=== PATIENT | female | born 1930 | race Caucasian/White ===

== ENCOUNTER → 2016-09-08 | Outpatient (REF) | payer MEDICARE, OTHER ==
[~2016-09-08] MED LIST: ACET65TA; ACET65TA PO; AMLO5TAB PO; AMLO5TAB2 PO; AVAP300T; AVAP75TA5 OR; CIPR500T19; CIPR500T4 PO; DIET; FLAG500T; HYDR25TA6; IBUP600T26 PO; LOPERAMIDE; LUNE2TAB; LUNE2TAB OR; MELOPOW; MOBIC; NORCOTAB PO; PERC5TAB8 PO; TOPR25TA; TOPR25TA OR; TOPR50TA PO; TRAM50TA2 OR; TRAM50TA2 PO; TYLE650T30 PO
[2016-09-08 11:55] LABS: ANION GAP 10 MEQ/L (8-16); BLOOD UREA NITROGEN 21 MG/DL (7-18); CARBON DIOXIDE LEVEL 24 MEQ/L (21-32); CHLORIDE LEVEL 109 MEQ/L (98-107); CREATININE FOR GFR 0.86 MG/DL (0.55-1.02); GLOMERULAR FILTRATION RATE > 60.0 (>32); GLUCOSE, FASTING 139 MG/DL (83-110); POTASSIUM SERUM 4.2 MEQ/L (3.5-5.1); SODIUM LEVEL 143 MEQ/L (136-145)
[2016-09-08 12:14] LABS: BASO % 0.3 % (0.0-1.0); EOS # 0.2 K/mm3 (0.0-0.50); EOS % 3.5 % (0.0-3.0); LYMPH # 1.5 K/mm3 (1.5-4.5); LYMPH % 21.9 % (24.0-44.0); MEAN CORPUSCULAR HEMOGLOBIN 27.9 pg (27.0-33.0); MEAN CORPUSCULAR HGB CONC 32.8 g/dl (32.0-36.5); MEAN CORPUSCULAR VOLUME 85.1 fl (80.0-96.0); MONO # 0.3 K/mm3 (0.0-0.8); MONO % 4.9 % (0.0-5.0); NEUTROPHILS # 4.5 K/mm3 (1.8-7.7); NEUTROPHILS % 67.8 % (36.0-66.0); RED CELL DISTRIBUTION WIDTH 13.3 % (11.5-14.5); WHITE BLOOD COUNT 6.6 K/mm3 (4.0-10.0)
== END ==
LOC: M LABDRAW1 10:57
PROVIDERS: ATTEND Internal Medicine
DX: I10 Essential (primary) hypertension (principal); N18.3 Chronic kidney disease, stage 3 (moderate); M15.9 Polyosteoarthritis, unspecified

== ENCOUNTER 2017-05-25 23:22 | Emergency (ER) | payer MEDICARE, OTHER ==
[~2017-05-25] VITALS: Ht 165.1 cm; Wt 89.5 kg
[~2017-05-25 23:22] MED LIST changes: +IBUP-1022 PO; -IBUP600T26 PO
--- NOTE | 2017-05-25 23:50 | REPUSA ---
CT of the head Clinical history: fall. Technique: Multiple axial CT images were obtained through the head without administration of contrast . Findings: The ventricles and sulci are symmetric bilaterally. There is no evidence of acute hemorrhag e or infarct. There is no midline shift, mass effect, or extra-axial fluid collection. The osseous st ructures are unremarkable. The visualized paranasal sinuses and mastoid air cells are clear. Impression: Negative study.
[2017-05-26] MEDS ORDERED: PERCOCET 5MG/325MG TAB PO ONE
--- NOTE | 2017-05-26 01:26 | REP ---
Clinical: Pain with recent trauma. Technique: Internal rotation, external rotation, and Y view of the left shoulder. Findings: Early advanced degenerative changes include cortical irregularity/periarticular sclerosis, mild spurring, and decreased sub acromial space. No acute fracture or dislocation. Surrounding soft tissues are unremarkable. Impression: Early advanced degenerative changes. No acute fracture or dislocation. Signed by Rayshawn Pollack MD 05/26/2017 01:24 A
[2017-05-26] MEDS ORDERED: PERC5TAB12 PO (01:40)
[2017-05-26] MEDS ORDERED: ZOFR4TAB3 PO (01:41)
[2017-05-26 02:52] VITALS: BP 132/78
== END 2017-05-26 02:53 | disposition home or self-care (01) ==
LOC: M ED 23:22 → EDBD 23:22 → M ED 05-26 02:53
DX: M25.511 Pain in right shoulder (principal); W06.XXXA Fall from bed, initial encounter; Y92.092 Bedroom in other non-institutional residence as the place of occurrence of the external cause; Y93.89 Activity, other specified; Y99.9 Unspecified external cause status

== ENCOUNTER → 2017-10-26 | Outpatient (REF) | payer MEDICARE ==
[2017-10-26 17:20] LABS: VITAMIN B12 LEVEL 480 PG/ML (247-911)
== END ==
LOC: M LAB REF 16:24
DX: R42 Dizziness and giddiness (principal); R53.83 Other fatigue
CPT/HCPCS: 82607

== ENCOUNTER → 2018-01-13 | Outpatient (REF) | payer MEDICARE | LOC: M LAB REF 17:43 | DX: L85.8 Other specified epidermal thickening (principal) | CPT/HCPCS: 88305 ==

== ENCOUNTER → 2018-02-14 | Outpatient (CLI) | payer MEDICARE | LOC: M WUC 12:02 | DX: M79.672 Pain in left foot (principal) | CPT/HCPCS: 73630 ==

== ENCOUNTER 2018-02-17 10:34 | Emergency (ER) | payer MEDICARE | END 2018-02-17 11:55 | disposition home or self-care (01) | LOC: M ED 10:34 | DX: S60.455A Superficial foreign body of left ring finger, initial encounter (principal); W49.04XA Ring or other jewelry causing external constriction, initial encounter; Y92.89 Other specified places as the place of occurrence of the external cause; I10 Essential (primary) hypertension; Z79.899 Other long term (current) drug therapy; Z96.653 Presence of artificial knee joint, bilateral | CPT/HCPCS: 99283 ==

== ENCOUNTER → 2019-05-09 | Outpatient (REF) | payer MEDICARE ==
[~2019-05-09] MED LIST changes: -AMLO5TAB2 PO; +AMLO5TAB6 PO; +HYDR-3715 PO; +METO-1; +METO-1 OR; -NORCOTAB PO; +PERC5TAB12 PO; -TOPR25TA; -TOPR25TA OR; +VALS1TAB66 PO; +ZOFR4TAB14 PO
== END ==
LOC: M LAB REF 12:14
PROVIDERS: ATTEND Internal Medicine
DX: R05 Cough (principal)